=== PATIENT | female | born 1975 | race Caucasian/White ===

== ENCOUNTER 2018-01-09 12:34 | Inpatient (IN) ==
[~2018-01-09 12:34] MED LIST: DEXAMETHASONE 4 MG/1 ML VIAL ONE; LIDOCAINE 100 MG/5 ML SYRINGE ONE; ONDANSETRON 4 MG/2 ML VIAL ONE; PROPOFOL 200 MG/20 ML VIAL IV ONE; SUCCINYLCHOLINE 200 MG/10 ML VIAL ONE
[2018-01-09] MEDS ORDERED: ONDANSETRON 4 MG/2 ML VIAL IV PRN (13:36)
[2018-01-09] MEDS ORDERED: LACTATED RINGERS 1,000 ML IV SCH (14:00)
[2018-01-09] MEDS ORDERED: fentaNYL 100 MCG/2 ML VIAL ONE (14:07)
[2018-01-09] MEDS ORDERED: SEVOFLURANE 1 UNIT/15 MINUTE INH ONE (14:48)
[2018-01-09 15:21] LABS: Calcium 9.3 MG/DL (8.5-10.1); Osmolality,Calculated 288.8 MOS/KG (273-304); Potassium 3.5 MMOL/L (3.5-5.1)
[2018-01-09] MEDS: LACTATED RINGERS 1,000 ML IV SCH ×3 (18:01→22:23)
[2018-01-09] MEDS: cefTRIAXone 2,000 MG in SYRINGE 1 EACH IV SCH (18:01)
[2018-01-09] MEDS: CLINDAMYCIN INJ 600 MG in PREMIX 1 EACH IV SCH ×2 (18:01→23:34)
[2018-01-09 19:20] LABS: Basophils % 0.2 % (0.0-0.8); Hematocrit 39.5 VOL% (35.7-47.0); Hemoglobin 13.8 GM/DL (12.0-16.0); Immature Granulocytes % 0.4 %; Immature Granulocytes Absolute 0.07 #; Lymphocytes # 0.7 10*3/uL (1.4-4.0); Lymphocytes % 4.2 % (21.3-54.2); Mean Corpuscular HGB Conc 34.9 GM/DL (32-36); Mean Corpuscular Hemoglobin 30 PG (27-34); Mean Corpuscular Volume 84.4 FL (87-102); Mean Platelet Volume 8.6 FL (9.6-12.0); Monocytes # 0.2 10*3/uL (0.11-0.8); Monocytes % 1.1 % (1.7-12.7); Neutrophils # 15.1 10*3/uL (1.4-7.4); Neutrophils % 94.1 % (38.7-73.9); Platelet Count 313 T/CUMM (130-400); Red Blood Count 4.68 MC/CUMM (3.8-5.5); Red Cell Distribution Width 12.7 % (9.3-17.3); White Blood Count 16.1 T/CUMM (4-12)
[2018-01-09 20:02] LABS: Band Neutrophils 4 % (0-10); Hypochromasia 1+; Lymphocytes 3 % (20-55); Segmented Neutrophils 92 % (50-85); Total Cells Counted 100
[2018-01-09 20:03] LABS: Platelet Estimate Normal
[2018-01-09] MEDS: ONDANSETRON 4 MG/2 ML VIAL IV PRN (23:32)
[2018-01-10] MEDS: LACTATED RINGERS 1,000 ML IV SCH ×5 (04:11→20:50)
[2018-01-10 04:54] LABS: Basophils % 0.1 % (0.0-0.8); Hemoglobin 11.9 GM/DL (12.0-16.0); Immature Granulocytes % 0.3 %; Immature Granulocytes Absolute 0.03 #; Lymphocytes # 1.3 10*3/uL (1.4-4.0); Lymphocytes % 13.4 % (21.3-54.2); Mean Corpuscular Hemoglobin 29 PG (27-34); Mean Corpuscular Volume 86.2 FL (87-102); Mean Platelet Volume 8.5 FL (9.6-12.0); Monocytes # 0.8 10*3/uL (0.11-0.8); Monocytes % 7.7 % (1.7-12.7); Neutrophils # 7.8 10*3/uL (1.4-7.4); Neutrophils % 78.5 % (38.7-73.9); Platelet Count 255 T/CUMM (130-400); Red Blood Count 4.06 MC/CUMM (3.8-5.5); Red Cell Distribution Width 12.4 % (9.3-17.3)
[2018-01-10 05:25] LABS: Calcium 8.6 MG/DL (8.5-10.1); Osmolality,Calculated 288.7 MOS/KG (273-304); Potassium 3.6 MMOL/L (3.5-5.1)
[2018-01-10] MEDS: CLINDAMYCIN INJ 600 MG in PREMIX 1 EACH IV SCH ×3 (05:37→17:29)
[2018-01-10] MEDS: cefTRIAXone 2,000 MG in SYRINGE 1 EACH IV SCH (18:10)
[2018-01-11] MEDS: CLINDAMYCIN INJ 600 MG in PREMIX 1 EACH IV SCH ×4 (00:02→20:52)
[2018-01-11] MEDS: LACTATED RINGERS 1,000 ML IV SCH ×3 (05:55→20:52)
[2018-01-11] MEDS: ONDANSETRON 4 MG/2 ML VIAL IV PRN (20:15)
[2018-01-11] MEDS: cefTRIAXone 2,000 MG in SYRINGE 1 EACH IV SCH (20:52)
[2018-01-12] MEDS: CLINDAMYCIN INJ 600 MG in PREMIX 1 EACH IV SCH ×4 (03:00→21:02)
[2018-01-12] MEDS: LACTATED RINGERS 1,000 ML IV SCH ×2 (06:33→17:33)
[2018-01-12] MEDS: cefTRIAXone 2,000 MG in SYRINGE 1 EACH IV SCH (21:01)
[2018-01-13] MEDS: LACTATED RINGERS 1,000 ML IV SCH ×3 (01:24→18:34)
[2018-01-13] MEDS: CLINDAMYCIN INJ 600 MG in PREMIX 1 EACH IV SCH ×4 (02:46→23:45)
[2018-01-13] MEDS: cefTRIAXone 2,000 MG in SYRINGE 1 EACH IV SCH (20:39)
[2018-01-14] MEDS: LACTATED RINGERS 1,000 ML IV SCH ×2 (02:34→11:15)
[2018-01-14] MEDS: CLINDAMYCIN INJ 600 MG in PREMIX 1 EACH IV SCH ×2 (06:23→12:50)
[2018-01-14 13:04] VITALS: BP 143/97
== END 2018-01-14 15:25 | disposition home or self-care (01) | DRG 393 ==
LOC: N.ED 12:34 → N.GILAB 12:50 → N.ICU 13:36 → N.GILAB 13:36 → N.ICU 17:30 → N.2E 01-10 17:13
PROVIDERS: ADMIT Internal Medicine Gastroenterology; ATTEND Internal Medicine Gastroenterology

== ENCOUNTER 2020-10-19 16:35 | Observation (INO) ==
[2020-10-19 17:20] LABS: Bacteria,Urine Occasional /HPF (Few); Bilirubin,Urine Negative (Negative); Blood, Urine Negative (Negative); Glucose,Urine (UA) Negative (Negative); Ketones,Urine Negative (Negative); Nitrite,Urine Negative (Negative); Protein,Urine Negative; RBC,Urine <1 /HPF (0-4); Squamous Epithelial Cell,Urine Occasional /HPF (0-10); Urine Appearance CLEAR (Clear); Urine Color Straw (Yellow); Urine Specific Gravity 1.005 (1.001-1.035); Urine Urobilinogen < 2.0 EU/DL (0.2-1.0)
[2020-10-19] MEDS ORDERED: SODIUM CHLORIDE 0.9% 1,000 ML IV STA (17:53)
[2020-10-19 18:10] LABS: Basophils # 0.1 10*3/uL (0.0-0.2); Basophils % 0.3 % (0.0-0.8); Eosinophils # 0.1 10*3/uL (0.0-0.87); Eosinophils % 0.5 % (0.00-10.9); Hematocrit 41.6 VOL% (35.7-47.0); Hemoglobin 14.1 GM/DL (12.0-16.0); Immature Granulocytes % 0.6 %; Immature Granulocytes Absolute 0.09 #; Lymphocytes # 1.1 10*3/uL (1.4-4.0); Lymphocytes % 7.3 % (21.3-54.2); Mean Corpuscular HGB Conc 33.9 GM/DL (32-36); Mean Corpuscular Volume 86.7 FL (87-102); Mean Platelet Volume 8.3 FL (9.6-12.0); Monocytes % 5.7 % (1.7-12.7); Neutrophils % 85.6 % (38.7-73.9); Platelet Count 273 T/CUMM (130-400); Red Cell Distribution Width 11.9 % (9.3-17.3); White Blood Count 15.2 T/CUMM (4-12)
[2020-10-19 18:17] LABS: Albumin 4.2 G/DL (3.4-5.0); Bilirubin,Total 0.6 MG/DL (0.2-1.0); Calcium 9.3 MG/DL (8.5-10.1); Osmolality,Calculated 268.1 MOS/KG (273-304); Potassium 3.6 MMOL/L (3.5-5.1); Total Protein 8.1 G/DL (6.4-8.2)
[2020-10-19] MEDS ORDERED: HYDROmorphone 2 MG/1 ML VIAL IV STA (18:27)
[2020-10-19] MEDS ORDERED: KETOROLAC 30 MG/1 ML VIAL IV STA (18:27)
[2020-10-19] MEDS ORDERED: ONDANSETRON 4 MG/2 ML VIAL IV STA (18:27)
[2020-10-19] MEDS ORDERED: PIPERACILLIN/TAZOBACTAM 3,375 MG in SODIUM CHLORIDE 0.9% 100 ML IV STA (19:33)
[2020-10-19] MEDS ORDERED: DEXTROSE 50% 25 GM/50 ML VIAL IV PRN (20:23)
[2020-10-19] MEDS ORDERED: hydrALAZINE 20 MG/1 ML VIAL IV PRN (20:23)
[2020-10-19] MEDS ORDERED: GLUCAGON 1 MG VIAL IM PRN (20:23)
[2020-10-19] MEDS ORDERED: MORPHINE 2 MG/1 ML SYRINGE IV PRN (20:26)
[2020-10-19] MEDS: ENOXAPARIN 40 MG/0.4 ML SYRINGE SUBCUT SCH (21:21)
[2020-10-20] MEDS: ONDANSETRON 4 MG/2 ML VIAL IV PRN ×3 (03:30→18:02)
[2020-10-20] MEDS: PIPERACILLIN/TAZOBACTAM 3,375 MG in SODIUM CHLORIDE 0.9% 100 ML IV SCH ×3 (03:32→18:31)
[2020-10-20] MEDS: SODIUM CHLORIDE 0.9% 1,000 ML IV SCH ×4 (03:32→11:37)
[2020-10-20] MEDS: ACETAMINOPHEN 325 MG TABLET PO PRN ×2 (03:33→11:26)
[2020-10-20 05:39] LABS: Basophils % 0.2 % (0.0-0.8); Eosinophils # 0.1 10*3/uL (0.0-0.87); Eosinophils % 0.5 % (0.00-10.9); Hematocrit 33.7 VOL% (35.7-47.0); Hemoglobin 11.4 GM/DL (12.0-16.0); Immature Granulocytes % 0.5 %; Immature Granulocytes Absolute 0.06 #; Lymphocytes # 1.2 10*3/uL (1.4-4.0); Mean Corpuscular HGB Conc 33.8 GM/DL (32-36); Mean Corpuscular Volume 87.5 FL (87-102); Mean Platelet Volume 8.4 FL (9.6-12.0); Monocytes % 7.8 % (1.7-12.7); Platelet Count 220 T/CUMM (130-400); Red Blood Count 3.85 MC/CUMM (3.8-5.5); Red Cell Distribution Width 12.1 % (9.3-17.3); White Blood Count 11.1 T/CUMM (4-12)
[2020-10-20 06:15] LABS: Albumin 2.8 G/DL (3.4-5.0); Bilirubin,Total 1.4 MG/DL (0.2-1.0); Calcium 8.1 MG/DL (8.5-10.1); Osmolality,Calculated 278.4 MOS/KG (273-304); Potassium 3.6 MMOL/L (3.5-5.1); Risk Ratio 2.63; Total Protein 6.2 G/DL (6.4-8.2)
[2020-10-20] MEDS: PANTOPRAZOLE 40 MG TABLET PO SCH (07:59)
[2020-10-20] MEDS: ENOXAPARIN 40 MG/0.4 ML SYRINGE SUBCUT SCH (20:18)
[2020-10-21] MEDS: PIPERACILLIN/TAZOBACTAM 3,375 MG in SODIUM CHLORIDE 0.9% 100 ML IV SCH ×2 (02:46→11:16)
[2020-10-21 06:28] LABS: Basophils % 0.4 % (0.0-0.8); Eosinophils # 0.2 10*3/uL (0.0-0.87); Eosinophils % 3.6 % (0.00-10.9); Hemoglobin 11.1 GM/DL (12.0-16.0); Immature Granulocytes % 0.3 %; Immature Granulocytes Absolute 0.02 #; Lymphocytes # 1.8 10*3/uL (1.4-4.0); Lymphocytes % 26.2 % (21.3-54.2); Mean Corpuscular HGB Conc 33.6 GM/DL (32-36); Mean Corpuscular Volume 88.2 FL (87-102); Mean Platelet Volume 8.4 FL (9.6-12.0); Monocytes % 7.9 % (1.7-12.7); Neutrophils % 61.6 % (38.7-73.9); Platelet Count 229 T/CUMM (130-400); Red Blood Count 3.74 MC/CUMM (3.8-5.5); Red Cell Distribution Width 12.1 % (9.3-17.3); White Blood Count 6.7 T/CUMM (4-12)
[2020-10-21 06:54] LABS: Calcium 7.9 MG/DL (8.5-10.1); Osmolality,Calculated 272.7 MOS/KG (273-304); Potassium 3.4 MMOL/L (3.5-5.1)
[2020-10-21] MEDS ORDERED: POTASSIUM CHLORIDE 20 MEQ TABLET PO ONE (08:30)
[2020-10-21] MEDS: PANTOPRAZOLE 40 MG TABLET PO SCH (09:15)
[2020-10-21] MEDS: SODIUM CHLORIDE 0.9% 1,000 ML IV SCH ×3 (09:24→11:43)
[2020-10-21 11:39] VITALS: BP 120/79
== END 2020-10-21 16:30 | disposition home or self-care (01) ==
LOC: N.ED 16:35 → N.EDINP 16:35 → N.3E 22:06
PROVIDERS: ADMIT Internal Medicine; ATTEND Internal Medicine